=== PATIENT | male | born 1975 | race Caucasian/White ===

== ENCOUNTER 2022-08-20 07:39 | Emergency (ER) | payer OTHER, BC, SELFPAY ==
[2022-08-20] VITALS (61 sets, daily range): BP systolic 112–142; BP diastolic 56–101; PULSE 60–79; RESP 16; TEMP 35.9–36.2; O2SAT 94–98
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
--- NOTE | 2022-08-20 07:56 | ED.GENADULT ---
HPI - General Adult General Chief complaint: Head Injury/Pain <Cher Grady MD - Last Filed: 08/20/22 08:28> Stated complaint: Snow plowing accident/hit head/neck pain <Cher Grady MD - Last Filed: 08/20/22 08:28> Time Seen by Provider: 08/20/22 07:54 <Cher Grady MD - Last Filed: 08/20/22 08:28> Source: patient <Cher Grady MD - Last Filed: 08/20/22 08:28> Mode of arrival: ambulatory <Cher Grady MD - Last Filed: 08/20/22 08:28> History of Present Illness HPI narrative: 46-year-old male with no significant history of prior head injury or seizure disorder presents to the emergency department 20 minutes after head injury. 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 The blade hit a curb unexpectedly, jarring to an immediate stop. Patient was not expecting this. And the impact caused his head to arch forward, striking it on the steering wheel or dashboard. He does believe that there was a brief loss of consciousness but could not have been more than a couple of minutes based on timing. He said that he came to without significant neurological change but has felt dizzy, disoriented and nauseated since. He believes that it likely hit the rim of his glasses as he has a small abrasion on the bridge of his nose. He said he felt immediate dizziness and nausea. He still feels disoriented at this time. No prior history of seizures, no severe head injuries in the past. He is not anticoagulated. No intoxication or impairing substances. He does have some tenderness around the nose and forehead area, no vision changes. There is also some pain in the lower neck, no history of significant prior injury. Denies any pain in his limbs or extremities or torso. No chest pain, dyspnea. No vomiting. Has not taken any medication to help with his symptoms. On specific questioning, he does report some lower neck pain, posterior. Denies weakness. Trauma team activation called due to mechanism of injury and loss of consciousness. Past medical history notable for depression and anxiety. Home medications listed his bupropion, fluoxetine and propranolol. He reports that he takes the propranolol 4-5 times per month p.r.n.. Denies prior surgeries. He notes no intoxication, alcohol use or tobacco use. ROS is notable for dizziness, neck pain, disorientation and mild head pain as described above. He otherwise denies times 12 systems decide some very mild nausea but declines medication to treat this at this time. <Cher Grady MD - Last Filed: 08/20/22 08:28> Related Data Home medications: Home Medications Medication Instructions Recorded Confirmed bupropion HCl 150 mg 24 hr tablet, mg PO 01/15/22 01/15/22 extended release fluoxetine 20 mg capsule 20 mg PO QPM 01/15/22 01/15/22 propranolol 10 mg tablet 10 mg PO BID PRN anxiety 01/15/22 01/15/22 Previous Rx's Medication Instructions Recorded cyclobenzaprine 10 mg tablet 10 mg PO TID PRN muscle spasm #20 08/20/22 tabs <Cher Grady MD - Last Filed: 08/20/22 08:28> Allergies/adverse reactions: Allergies Allergy/AdvReac Type Severity Reaction Status Date / Time No Known Drug Allergies Allergy Verified 08/20/22 07:59 <Cher Grady MD - Last Filed: 08/20/22 08:28> [facility] Medical History: Medical History Depression Generalized anxiety disorder <Cher Grady MD - Last Filed: 08/20/22 08:28> Social History: Social History Smoking Status: Former smoker Do you use any of these nicotine containing products: None Second hand tobacco smoke exposure: Yes How often do you have a drink containing alcohol: 2-3 times a week How often do you have six or more drinks on one occasion: Monthly AUDIT-C Alcohol total score: 5 Non-prescribed substance use: marijuana (any form) Non-prescribed substance use details: occasional gummy service: No <Cher Grady MD - Last Filed: 08/20/22 08:28> Exam Const: Vital Signs, click to edit/add: Vital Signs - 24 hr 08/20/22 07:54 08/20/22 08:08 08/20/22 08:09 Temperature 96.6 F L Pulse Rate 70 68 Pulse Rate [Left P ulse Oximeter] 79 Respiratory Rate 16 Blood Pressure 124/84 Blood Pressure [Ri ght Upper Arm] 142/101 H Pulse Oximetry 97 96 96 Oxygen Delivery Me thod Room Air 08/20/22 08:17 08/20/22 08:20 08/20/22 08:22 Temperature Pulse Rate 70 68 67 Pulse Rate [Left P ulse Oximeter] Respiratory Rate Blood Pressure 132/85 Blood Pressure [Ri ght Upper Arm] Pulse Oximetry 94 96 96 Oxygen Delivery Me thod 08/20/22 08:23 08/20/22 08:30 08/20/22 08:31 Temperature Pulse Rate 68 66 68 Pulse Rate [Left P ulse Oximeter] Respiratory Rate Blood Pressure 121/80 Blood Pressure [Ri ght Upper Arm] Pulse Oximetry 96 95 95 Oxygen Delivery Me thod 08/20/22 08:32 08/20/22 08:41 08/20/22 08:42 Temperature Pulse Rate 68 67 68 Pulse Rate [Left P ulse Oximeter] Respiratory Rate Blood Pressure 121/81 Blood Pressure [Ri ght Upper Arm] Pulse Oximetry 95 95 95 Oxygen Delivery Me thod 08/20/22 08:50 08/20/22 08:51 08/20/22 09:00 Temperature Pulse Rate 64 67 67 Pulse Rate [Left P ulse Oximeter] Respiratory Rate Blood Pressure 120/78 Blood Pressure [Ri ght Upper Arm] Pulse Oximetry 95 96 97 Oxygen Delivery Me thod 08/20/22 09:01 08/20/22 09:02 08/20/22 09:10 Temperature Pulse Rate 68 69 69 Pulse Rate [Left P ulse Oximeter] Respiratory Rate Blood Pressure 128/83 Blood Pressure [Ri ght Upper Arm] Pulse Oximetry 97 96 97 Oxygen Delivery Me thod 08/20/22 09:11 08/20/22 09:17 08/20/22 09:12 Temperature 97.1 F L Pulse Rate 71 71 Pulse Rate [Left P ulse Oximeter] Respiratory Rate Blood Pressure 112/56 L Blood Pressure [Ri ght Upper Arm] Pulse Oximetry 97 98 Oxygen Delivery Me thod 08/20/22 09:20 08/20/22 09:21 08/20/22 09:30 Temperature Pulse Rate 68 68 64 Pulse Rate [Left P ulse Oximeter] Respiratory Rate Blood Pressure 123/87 Blood Pressure [Ri ght Upper Arm] Pulse Oximetry 96 97 96 Oxygen Delivery Me thod 08/20/22 09:31 08/20/22 09:32 08/20/22 09:40 Temperature Pulse Rate 65 68 65 Pulse Rate [Left P ulse Oximeter] Respiratory Rate Blood Pressure 125/78 Blood Pressure [Ri ght Upper Arm] Pulse Oximetry 96 96 96 Oxygen Delivery Me thod 08/20/22 09:41 08/20/22 09:50 08/20/22 09:51 Temperature Pulse Rate 67 67 70 Pulse Rate [Left P ulse Oximeter] Respiratory Rate Blood Pressure 124/76 132/88 Blood Pressure [Ri ght Upper Arm] Pulse Oximetry 97 97 98 Oxygen Delivery Me thod 08/20/22 09:52 08/20/22 10:00 08/20/22 10:01 Temperature Pulse Rate 68 67 70 Pulse Rate [Left P ulse Oximeter] Respiratory Rate Blood Pressure 128/91 H Blood Pressure [Ri ght Upper Arm] Pulse Oximetry 98 97 97 Oxygen Delivery Me thod 08/20/22 10:10 08/20/22 10:11 08/20/22 10:20 Temperature Pulse Rate 74 71 68 Pulse Rate [Left P ulse Oximeter] Respiratory Rate Blood Pressure 127/89 Blood Pressure [Ri ght Upper Arm] Pulse Oximetry 98 98 98 Oxygen Delivery Me thod 08/20/22 10:21 08/20/22 10:22 08/20/22 10:30 Temperature Pulse Rate 72 67 66 Pulse Rate [Left P ulse Oximeter] Respiratory Rate Blood Pressure 130/98 H Blood Pressure [Ri ght Upper Arm] Pulse Oximetry 97 98 96 Oxygen Delivery Me thod 08/20/22 10:32 08/20/22 10:40 08/20/22 10:41 Temperature Pulse Rate 64 64 64 Pulse Rate [Left P ulse Oximeter] Respiratory Rate Blood Pressure 115/76 119/72 Blood Pressure [Ri ght Upper Arm] Pulse Oximetry 96 96 96 Oxygen Delivery Me thod 08/20/22 10:42 08/20/22 10:50 08/20/22 11:00 Temperature Pulse Rate 64 64 63 Pulse Rate [Left P ulse Oximeter] Respiratory Rate Blood Pressure Blood Pressure [Ri ght Upper Arm] Pulse Oximetry 96 96 95 Oxygen Delivery Me thod 08/20/22 11:01 08/20/22 11:10 08/20/22 11:20 Temperature Pulse Rate 71 68 67 Pulse Rate [Left P ulse Oximeter] Respiratory Rate Blood Pressure 127/70 Blood Pressure [Ri ght Upper Arm] Pulse Oximetry 95 95 97 Oxygen Delivery Me thod 08/20/22 11:52 08/20/22 11:54 08/20/22 12:00 Temperature Pulse Rate 64 65 60 Pulse Rate [Left P ulse Oximeter] Respiratory Rate Blood Pressure 128/83 Blood Pressure [Ri ght Upper Arm] Pulse Oximetry 98 96 97 Oxygen Delivery Me thod 08/20/22 12:01 08/20/22 12:10 08/20/22 12:20 Temperature Pulse Rate 65 63 63 Pulse Rate [Left P ulse Oximeter] Respiratory Rate Blood Pressure 124/89 Blood Pressure [Ri ght Upper Arm] Pulse Oximetry 97 96 97 Oxygen Delivery Me thod 08/20/22 12:30 08/20/22 12:31 08/20/22 12:40 Temperature Pulse Rate 62 66 65 Pulse Rate [Left P ulse Oximeter] Respiratory Rate Blood Pressure 124/88 Blood Pressure [Ri ght Upper Arm] Pulse Oximetry 97 98 96 Oxygen Delivery Me thod 08/20/22 12:50 08/20/22 13:00 08/20/22 13:01 Temperature Pulse Rate 79 63 62 Pulse Rate [Left P ulse Oximeter] Respiratory Rate Blood Pressure 127/84 Blood Pressure [Ri ght Upper Arm] Pulse Oximetry 95 97 96 Oxygen Delivery Me thod 08/20/22 13:10 Temperature Pulse Rate 67 Pulse Rate [Left P ulse Oximeter] Respiratory Rate Blood Pressure Blood Pressure [Ri ght Upper Arm] Pulse Oximetry 97 Oxygen Delivery Me thod <Cher Grady MD - Last Filed: 08/20/22 08:28> Vital Signs, click to edit/add: Vital Signs - 24 hr 08/20/22 07:54 08/20/22 08:08 08/20/22 08:09 Temperature 96.6 F L Pulse Rate 70 68 Pulse Rate [Left P ulse Oximeter] 79 Respiratory Rate 16 Blood Pressure 124/84 Blood Pressure [Ri ght Upper Arm] 142/101 H Pulse Oximetry 97 96 96 Oxygen Delivery Me thod Room Air 08/20/22 08:17 08/20/22 08:20 08/20/22 08:22 Temperature Pulse Rate 70 68 67 Pulse Rate [Left P ulse Oximeter] Respiratory Rate Blood Pressure 132/85 Blood Pressure [Ri ght Upper Arm] Pulse Oximetry 94 96 96 Oxygen Delivery Me thod 08/20/22 08:23 08/20/22 08:30 08/20/22 08:31 Temperature Pulse Rate 68 66 68 Pulse Rate [Left P ulse Oximeter] Respiratory Rate Blood Pressure 121/80 Blood Pressure [Ri ght Upper Arm] Pulse Oximetry 96 95 95 Oxygen Delivery Me thod 08/20/22 08:32 08/20/22 08:41 08/20/22 08:42 Temperature Pulse Rate 68 67 68 Pulse Rate [Left P ulse Oximeter] Respiratory Rate Blood Pressure 121/81 Blood Pressure [Ri ght Upper Arm] Pulse Oximetry 95 95 95 Oxygen Delivery Me thod 08/20/22 08:50 08/20/22 08:51 08/20/22 09:00 Temperature Pulse Rate 64 67 67 Pulse Rate [Left P ulse Oximeter] Respiratory Rate Blood Pressure 120/78 Blood Pressure [Ri ght Upper Arm] Pulse Oximetry 95 96 97 Oxygen Delivery Me thod 08/20/22 09:01 08/20/22 09:02 08/20/22 09:10 Temperature Pulse Rate 68 69 69 Pulse Rate [Left P ulse Oximeter] Respiratory Rate Blood Pressure 128/83 Blood Pressure [Ri ght Upper Arm] Pulse Oximetry 97 96 97 Oxygen Delivery Me thod 08/20/22 09:11 08/20/22 09:17 08/20/22 09:12 Temperature 97.1 F L Pulse Rate 71 71 Pulse Rate [Left P ulse Oximeter] Respiratory Rate Blood Pressure 112/56 L Blood Pressure [Ri ght Upper Arm] Pulse Oximetry 97 98 Oxygen Delivery Me thod 08/20/22 09:20 08/20/22 09:21 08/20/22 09:30 Temperature Pulse Rate 68 68 64 Pulse Rate [Left P ulse Oximeter] Respiratory Rate Blood Pressure 123/87 Blood Pressure [Ri ght Upper Arm] Pulse Oximetry 96 97 96 Oxygen Delivery Me thod 08/20/22 09:31 08/20/22 09:32 08/20/22 09:40 Temperature Pulse Rate 65 68 65 Pulse Rate [Left P ulse Oximeter] Respiratory Rate Blood Pressure 125/78 Blood Pressure [Ri ght Upper Arm] Pulse Oximetry 96 96 96 Oxygen Delivery Me thod 08/20/22 09:41 08/20/22 09:50 08/20/22 09:51 Temperature Pulse Rate 67 67 70 Pulse Rate [Left P ulse Oximeter] Respiratory Rate Blood Pressure 124/76 132/88 Blood Pressure [Ri ght Upper Arm] Pulse Oximetry 97 97 98 Oxygen Delivery Me thod 08/20/22 09:52 08/20/22 10:00 08/20/22 10:01 Temperature Pulse Rate 68 67 70 Pulse Rate [Left P ulse Oximeter] Respiratory Rate Blood Pressure 128/91 H Blood Pressure [Ri ght Upper Arm] Pulse Oximetry 98 97 97 Oxygen Delivery Me thod 08/20/22 10:10 08/20/22 10:11 08/20/22 10:20 Temperature Pulse Rate 74 71 68 Pulse Rate [Left P ulse Oximeter] Respiratory Rate Blood Pressure 127/89 Blood Pressure [Ri ght Upper Arm] Pulse Oximetry 98 98 98 Oxygen Delivery Me thod 08/20/22 10:21 08/20/22 10:22 08/20/22 10:30 Temperature Pulse Rate 72 67 66 Pulse Rate [Left P ulse Oximeter] Respiratory Rate Blood Pressure 130/98 H Blood Pressure [Ri ght Upper Arm] Pulse Oximetry 97 98 96 Oxygen Delivery Me thod 08/20/22 10:32 08/20/22 10:40 08/20/22 10:41 Temperature Pulse Rate 64 64 64 Pulse Rate [Left P ulse Oximeter] Respiratory Rate Blood Pressure 115/76 119/72 Blood Pressure [Ri ght Upper Arm] Pulse Oximetry 96 96 96 Oxygen Delivery Me thod 08/20/22 10:42 08/20/22 10:50 08/20/22 11:00 Temperature Pulse Rate 64 64 63 Pulse Rate [Left P ulse Oximeter] Respiratory Rate Blood Pressure Blood Pressure [Ri ght Upper Arm] Pulse Oximetry 96 96 95 Oxygen Delivery Me thod 08/20/22 11:01 08/20/22 11:10 08/20/22 11:20 Temperature Pulse Rate 71 68 67 Pulse Rate [Left P ulse Oximeter] Respiratory Rate Blood Pressure 127/70 Blood Pressure [Ri ght Upper Arm] Pulse Oximetry 95 95 97 Oxygen Delivery Me thod 08/20/22 11:52 08/20/22 11:54 08/20/22 12:00 Temperature Pulse Rate 64 65 60 Pulse Rate [Left P ulse Oximeter] Respiratory Rate Blood Pressure 128/83 Blood Pressure [Ri ght Upper Arm] Pulse Oximetry 98 96 97 Oxygen Delivery Me thod 08/20/22 12:01 08/20/22 12:10 08/20/22 12:20 Temperature Pulse Rate 65 63 63 Pulse Rate [Left P ulse Oximeter] Respiratory Rate Blood Pressure 124/89 Blood Pressure [Ri ght Upper Arm] Pulse Oximetry 97 96 97 Oxygen Delivery Me thod 08/20/22 12:30 08/20/22 12:31 08/20/22 12:40 Temperature Pulse Rate 62 66 65 Pulse Rate [Left P ulse Oximeter] Respiratory Rate Blood Pressure 124/88 Blood Pressure [Ri ght Upper Arm] Pulse Oximetry 97 98 96 Oxygen Delivery Me thod 08/20/22 12:50 08/20/22 13:00 08/20/22 13:01 Temperature Pulse Rate 79 63 62 Pulse Rate [Left P ulse Oximeter] Respiratory Rate Blood Pressure 127/84 Blood Pressure [Ri ght Upper Arm] Pulse Oximetry 95 97 96 Oxygen Delivery Me thod 08/20/22 13:10 Temperature Pulse Rate 67 Pulse Rate [Left P ulse Oximeter] Respiratory Rate Blood Pressure Blood Pressure [Ri ght Upper Arm] Pulse Oximetry 97 Oxygen Delivery Me thod <Pam Hartley MD - Last Filed: 08/20/22 16:54> Documenting provider has reviewed patient's vital signs: yes <Cher Grady MD - Last Filed: 08/20/22 08:28> Common normals: alert <Cher Grady MD - Last Filed: 08/20/22 08:28> General appearance: cooperative and well kempt <Cher Grady MD - Last Filed: 08/20/22 08:28> Orientation/consciousness: Yes awake <Cher Grady MD - Last Filed: 08/20/22 08:28> HENMT: Common normals: TM's normal bilaterally <MD Soni Arrieta Last Filed: 08/20/22 08:28> Tympanic membrane: TM's normal bilaterally <MD Soni Arrieta Last Filed: 08/20/22 08:28> Mouth: oral and palatal mucosa normal <MD Soni Arrieta Last Filed: 08/20/22 08:28> Throat: posterior oropharynx normal <MD Soni Arrieta Last Filed: 08/20/22 08:28> Other: There is a small abrasion on the upper bridge of the nose where the glasses contact. Glasses are not broken. There is no other deformity to the scalp or skull. Facial bones without deformity otherwise. Teeth are normal. No signs of tongue biting or evidence of seizure. <MD Soni Arrieta Last Filed: 08/20/22 08:28> Eye: Common normals: PERRL and EOMs intact bilaterally <MD Soni Arrieta Last Filed: 08/20/22 08:28> General eye: normal appearance of both eyes <MD Soni Arrieta Last Filed: 08/20/22 08:28> Pupil: PERRL <MD Soni Arrieta Last Filed: 08/20/22 08:28> Neck & C-Spine: Other: Cervical spine with paraspinal muscle tenderness around C8-T2 area mainly. There is some mild bony tenderness over C8 only. No point tenderness on the upper cervical vertebrae. He can flex, extend and rotate without significant additional pain. No step-offs <MD Soni Arrieta Last Filed: 08/20/22 08:28> Chest: Common normals: inspection of chest normal and palpation of chest normal <MD Soni Arrieta Last Filed: 08/20/22 08:28> Resp: Common normals: normal respiratory effort, no use of accessory muscles and clear to auscultation bilaterally <MD Soni Arrieta Last Filed: 08/20/22 08:28> Effort & inspection: able to speak in complete sentences <MD Soni Arrieta Last Filed: 08/20/22 08:28> Auscultation: clear to auscultation bilaterally <MD Soni Arrieta Last Filed: 08/20/22 08:28> Cardio: Common normals: regular rate, regular rhythm, S1 normal heart sound, S2 normal heart sound, no murmurs and peripheral pulses 2+ throughout <MD Soni Arrieta Last Filed: 08/20/22 08:28> Rate: regular rate <MD Soni Arrieta Last Filed: 08/20/22 08:28> Rhythm: regular rhythm <MD Soni Arrieta Last Filed: 08/20/22 08:28> Heart sounds: S1 normal and S2 normal <MD Soni Arrieta Last Filed: 08/20/22 08:28> Peripheral pulses: pulses 2+ throughout <MD Soni Arrieta Last Filed: 08/20/22 08:28> GI: Common normals: Normal to inspection, nondistended, normoactive bowel sounds present, soft to palpation, non-tender, no hepatosplenomegaly and no masses <MD Soni Arrieta Last Filed: 08/20/22 08:28> Palpation: soft and no hepatosplenomegaly <MD Soni Arrieta Last Filed: 08/20/22 08:28> Back & Pelvis: Common normals: thoracic and lumbar spine normal to inspection and no thoracic nor lumbar tenderness <MD Soni Arrieta Last Filed: 08/20/22 08:28> Other: Complain of some very mild initial tenderness to palpation over the left outside pelvis but was not reproducible in supine exam. Ambulates into the exam room without difficulty. No obvious swelling to any joints. Mild abrasion noted to left dorsum of hand. <MD Soni Arrieta Last Filed: 08/20/22 08:28> Extremity: Common normals: normal to inspection, normal capillary refill, no joint enlargement and no pedal edema <MD Soni Arrieta Last Filed: 08/20/22 08:28> Neuro: [place] Coma Scale: document GCS findings [place] coma scale eye opening: Spontaneous (4) [place] coma scale verbal response: Orientated (5) [place] coma scale motor response: Obey commands (6) [place] coma scale total score: 15 <Cher Grady MD - Last Filed: 08/20/22 08:28> [place] Coma Scale: document GCS findings [place] coma scale total score: 15 <Pam Hartley MD - Last Filed: 08/20/22 16:54> Sensorium/orientation: awake and alert <Cher Grady MD - Last Filed: 08/20/22 08:28> Cranial nerves: CN normal except as noted <Cher Grady MD - Last Filed: 08/20/22 08:28> Speech: speech normal <Cher Grady MD - Last Filed: 08/20/22 08:28> Gait (neuro): normal gait <Cher Grady MD - Last Filed: 08/20/22 08:28> Motor exam: strength 5/5 throughout, no tremor noted and no movement abnormalities noted <Cher Grady MD - Last Filed: 08/20/22 08:28> Psych: Common normals: mental status grossly normal, thought process normal and cooperative <Cher Grady MD - Last Filed: 08/20/22 08:28> Appearance: well kempt <Cher Grady MD - Last Filed: 08/20/22 08:28> Attitude: engaged <Cher Grady MD - Last Filed: 08/20/22 08:28> Activity/motor behavior: appropriate eye contact <Cher Grady MD - Last Filed: 08/20/22 08:28> Mood and affect: anxious <Cher Grady MD - Last Filed: 08/20/22 08:28> Thought process: normal thought process <Cher Grady MD - Last Filed: 08/20/22 08:28> Attention/concentration: attention grossly intact <Cher Grady MD - Last Filed: 08/20/22 08:28> Insight: insight good <Cher Grady MD - Last Filed: 08/20/22 08:28> Judgement: judgment good <Cher Grady MD - Last Filed: 08/20/22 08:28> Skin: Narrative: Slight abrasion on hand, slight abrasion on upper bridge of nose, neither are bleeding, all are superficial depth. <Cher Grady MD - Last Filed: 08/20/22 08:28> Course Reevaluation(s) Reevaluation #1: Patient with continued GCS of 15. However he continues to note increasing neck pain. States that is now radiating up from the bottom of his neck into his head. Patient noted to have continued pain of his neck after removal of the collar. CT was read is negative for acute injury. However he is limited in his rotation and has discomfort now in the midline. Would recommend MRI cervical spine in this has been arranged. Will place the [place] collar. <Pam Hartley MD - Last Filed: 08/20/22 16:54> Vital Signs Vital signs: Initial Vital Signs Temperature 96.6 F L 08/20/22 07:54 Temperature Source Temporal Artery Scan 08/20/22 07:54 Pulse Rate 79 08/20/22 07:54 Pulse Rhythm 08/20/22 07:54 Respiratory Rate 16 08/20/22 07:54 Blood Pressure 142/101 H 08/20/22 07:54 Blood Pressure Mean 114 08/20/22 07:54 Blood Pressure Position Sitting 08/20/22 07:54 Pulse Oximetry 97 08/20/22 07:54 Oxygen Delivery Method 08/20/22 07:54 Vital Signs Temperature 96.6 F L 08/20/22 07:54 Pulse Rate 79 08/20/22 07:54 Respiratory Rate 16 08/20/22 07:54 Blood Pressure 142/101 H 08/20/22 07:54 Pulse Oximetry 97 08/20/22 07:54 Oxygen Delivery Method 08/20/22 07:54 Temperature 97.1 F L 08/20/22 09:17 Pulse Rate 67 08/20/22 13:10 Respiratory Rate 16 08/20/22 07:54 Blood Pressure 127/84 08/20/22 13:01 Pulse Oximetry 97 08/20/22 13:10 Oxygen Delivery Method 08/20/22 07:54 <Cher Grady MD - Last Filed: 08/20/22 08:28> Initial Vital Signs Temperature 96.6 F L 08/20/22 07:54 Temperature Source Temporal Artery Scan 08/20/22 07:54 Pulse Rate 79 08/20/22 07:54 Pulse Rhythm 08/20/22 07:54 Respiratory Rate 16 08/20/22 07:54 Blood Pressure 142/101 H 08/20/22 07:54 Blood Pressure Mean 114 08/20/22 07:54 Blood Pressure Position Sitting 08/20/22 07:54 Pulse Oximetry 97 08/20/22 07:54 Oxygen Delivery Method 08/20/22 07:54 Vital Signs Temperature 96.6 F L 08/20/22 07:54 Pulse Rate 79 08/20/22 07:54 Respiratory Rate 16 08/20/22 07:54 Blood Pressure 142/101 H 08/20/22 07:54 Pulse Oximetry 97 08/20/22 07:54 Oxygen Delivery Method 08/20/22 07:54 Temperature 97.1 F L 08/20/22 09:17 Pulse Rate 67 08/20/22 13:10 Respiratory Rate 16 08/20/22 07:54 Blood Pressure 127/84 08/20/22 13:01 Pulse Oximetry 97 08/20/22 13:10 Oxygen Delivery Method 08/20/22 07:54 <Pam Hartley MD - Last Filed: 08/20/22 16:54> Medical Decision Making MDM Narrative Medical decision making narrative: Head injury with brief loss of consciousness. Suspect concussion but cannot exclude intracranial hemorrhage, cervical spine injury, facial fracture, other injuries. Will monitor condition, not giving any pain or antiemetic treatments at this time, he verbalizes understanding and understands my rationale. CT scan of facial bones, head and cervical spine, basic labs to look for anemia, electrolyte abnormality, intoxication or other reason for potential impairment. Will need counseling regarding concussion based on findings. Anticipate hand over to my partner in coming on day shift. <Cher Grady MD - Last Filed: 08/20/22 08:28> Head injury with brief loss of consciousness. Suspect concussion but cannot exclude intracranial hemorrhage, cervical spine injury, facial fracture, other injuries. Will monitor condition, not giving any pain or antiemetic treatments at this time, he verbalizes understanding and understands my rationale. CT scan of facial bones, head and cervical spine, basic labs to look for anemia, electrolyte abnormality, intoxication or other reason for potential impairment. Will need counseling regarding concussion based on findings. Anticipate hand over to my partner in coming on day shift. Assessment/plan 1. Cervical strain-patient noted to have negative CT but complained of neck pain and had limited range of motion. We were able to get an MRI without contrast that showed no evidence of ligamental or bony injury. We did remove the [place] collar. Patient was given Flexeril 10 mg and ibuprofen 600 mg and did have improvement in his discomfort. Flexeril 10 mg p.o. t.i.d. p.r.n. 20. Was sent to the pharmacy. 2. Concussion-patient is given note for no work over the next 5 days. Will need to recheck with his primary on ThursdayAugust 25 to be cleared back to work. Head CT reassuring. 3. Facial trauma-patient with no evidence of fracture. He did have superficial laceration on the bridge of his nose and his left hand. Last tetanus was in 2010. He declines his tetanus today. I did state that usually we would like this done is within 72 hours but he states he is ?not worried?. He will follow up with primary MD next week. 3. Disposition-return to the emergency room for worsening symptoms and as needed. <Pam Hartley MD - Last Filed: 08/20/22 16:54> Medical Records Medical records reviewed: Yes I reviewed the patient's medical records <Pam Hartley MD - Last Filed: 08/20/22 16:54> Lab Data Lab results reviewed: Yes I reviewed the patient's lab results <Pam Hartley MD - Last Filed: 08/20/22 16:54> Labs: Lab Results 08/20/22 08/20/22 Range/Units 08:25 08:25 WBC 4.61 (4.50-11.00) K/uL RBC 4.95 (4.30-5.90) m/uL Hgb 15.4 (13.5-17.5) gm/dL Hct 43.7 (37.0-53.0) % MCV 88 (80-100) fL MCH 31 (26-34) pg MCHC 35 (32-36) gm/dL RDW Coeff of Thuy 11.9 (11.5-15.5) % Plt Count 217 (140-440) K/uL Neut % (Auto) 70.9 (42.0-72.0) % Lymph % (Auto) 19.1 L (20-44) % [place] % (Auto) 7.8 (0.0-11.0) % Eos % (Auto) 1.1 (0.0-7.0) % Baso % (Auto) 0.4 (0.0-3.0) % Neut # (Auto) 3.27 (1.7-7.0) K/uL Lymph # (Auto) 0.90 (0.90-2.90) K/uL [place] # (Auto) 0.40 (0.00-0.90) K/UL Eos # (Auto) 0.05 (0.00-0.50) K/uL Baso # (Auto) 0.02 (0.00-0.30) K/uL Sodium 140 (135-149) mmol/L Potassium 4.2 (3.6-5.1) mmol/L Chloride 110 (96-114) mmol/L Carbon Dioxide 24 (20-32) mmol/L BUN 21 (5-24) mg/dL Creatinine 0.8 (0.5-1.5) mg/dL Estimated Creat Clear 124.19 Estimated GFR 111 ml/min Glucose 121 H (60-115) mg/dL Calcium 9.2 (8.4-10.6) mg/dL Ethyl Alcohol < 0.01 L (0.01-0.03) % <Cher Grady MD - Last Filed: 08/20/22 08:28> Lab Results 08/20/22 08/20/22 Range/Units 08:25 08:25 WBC 4.61 (4.50-11.00) K/uL RBC 4.95 (4.30-5.90) m/uL Hgb 15.4 (13.5-17.5) gm/dL Hct 43.7 (37.0-53.0) % MCV 88 (80-100) fL MCH 31 (26-34) pg MCHC 35 (32-36) gm/dL RDW Coeff of Thuy 11.9 (11.5-15.5) % Plt Count 217 (140-440) K/uL Neut % (Auto) 70.9 (42.0-72.0) % Lymph % (Auto) 19.1 L (20-44) % [place] % (Auto) 7.8 (0.0-11.0) % Eos % (Auto) 1.1 (0.0-7.0) % Baso % (Auto) 0.4 (0.0-3.0) % Neut # (Auto) 3.27 (1.7-7.0) K/uL Lymph # (Auto) 0.90 (0.90-2.90) K/uL [place] # (Auto) 0.40 (0.00-0.90) K/UL Eos # (Auto) 0.05 (0.00-0.50) K/uL Baso # (Auto) 0.02 (0.00-0.30) K/uL Sodium 140 (135-149) mmol/L Potassium 4.2 (3.6-5.1) mmol/L Chloride 110 (96-114) mmol/L Carbon Dioxide 24 (20-32) mmol/L BUN 21 (5-24) mg/dL Creatinine 0.8 (0.5-1.5) mg/dL Estimated Creat Clear 124.19 Estimated GFR 111 ml/min Glucose 121 H (60-115) mg/dL Calcium 9.2 (8.4-10.6) mg/dL Ethyl Alcohol < 0.01 L (0.01-0.03) % <Pam Hartley MD - Last Filed: 08/20/22 16:54> Imaging Data CT scan - head: Attestation: I have reviewed the pertinent imaging results. <Pam Hartley MD - Last Filed: 08/20/22 16:54> My impression: No obvious head bleed or skull fracture <Pam Hartley MD - Last Filed: 08/20/22 16:54> Radiologist's impression: Negative for acute findings <Pam Hartley MD - Last Filed: 08/20/22 16:54> Cervical spine CT: Attestation: I have reviewed the pertinent imaging results. <Pam Hartley MD - Last Filed: 08/20/22 16:54> Radiologist's impression: ertebrae: Alignment is normal.? There are no fractures or suspicious bony lesions.? Discs and facet joints: Minimal intervertebral disc space narrowing C6-C7. No significant facet arthropathy. Extraspinal findings: Prevertebral soft tissues, visualized airway, and visualized lungs are unremarkable.? IMPRESSION: No evidence of cervical spine fracture <Pam Hartley MD - Last Filed: 08/20/22 16:54> Facial bones CT: Attestation: I have reviewed the pertinent imaging results. <Pam Hartley MD - Last Filed: 08/20/22 16:54> Radiologist's impression: Facial bones: No fractures or bone lesions.? Specifically the nasal bones, temporomandibular joints, maxilla and mandible appear intact. Orbits and globes: Unremarkable. Globes are intact. No sign of intraorbital hemorrhage or emphysema. Sinuses: No acute or significant findings. Soft tissues: Unremarkable.? IMPRESSION: No evidence of facial fracture. <Pam Hartley MD - Last Filed: 08/20/22 16:54> Cervical MRI: Attestation: I have reviewed the pertinent imaging results. <Pam Hartley MD - Last Filed: 08/20/22 16:54> Radiologist's impression: Normal cervical lordotic curve. No evidence cervical spine fracture or ligamentous injury. No evidence of cord contusion. Posterior fossa structures are normal. Cervical cord signal is normal. No extraspinal soft tissue abnormalities. Discs/Endplates: Mild disc height loss/disc desiccation at C5-6, C6-7 and C7-T1. The other discs are within normal limits. Findings at individual levels as follows: Craniocervical junction: Alignment is maintained. C2-C3: No spinal canal or neural foraminal stenosis. C3-C4: No spinal canal or neural foraminal stenosis. C4-C5: Bilateral uncovertebral arthrosis contributes to mild left and mild to moderate right neural foraminal stenosis. No spinal canal stenosis. C5-C6: Shallow disc osteophyte complex flattens the thecal sac without spinal canal stenosis. Bilateral uncovertebral arthrosis with mild bilateral neural foraminal stenosis. C6-C7: Trace anterolisthesis. A 4 millimeter right dorsal lateral disc protrusion and contiguous uncovertebral arthrosis contribute to moderate right neural foraminal stenosis with potential mild impingement of the exiting right C7 nerve root. No left neural foraminal stenosis or spinal canal stenosis. C7-T1: Right uncovertebral arthrosis contributes to mild right neural foraminal stenosis. No left neural foraminal stenosis or spinal canal stenosis. IMPRESSION: 1. No MRI evidence of traumatic cervical spine osseous or ligamentous injury. No cord contusion. 2. Scattered cervical spondylosis most prominent at the lower cervical levels. At C6-7, moderate right neural foraminal stenosis with potential mild impingement of the exiting right C7 nerve root. No high-grade spinal canal stenosis or cord deformity at any cervical level. Cervical cord signal is normal. <Pam Hartley MD - Last Filed: 08/20/22 16:54> Discharge Plan Discharge Clinical Impression: Cervical myofascial strain, Concussion, Soft tissue injury <Cher Grady MD - Last Filed: 08/20/22 08:28> Patient Disposition: Home, Self-Care <Cher Grady MD - Last Filed: 08/20/22 08:28> Condition: Improved <Cher Grady MD - Last Filed: 08/20/22 08:28> Additional Instructions: Rest today. Suggest no work for the rest of this week. Follow-up on Thursday with the clinic at . They will need to clear you to return. Ibuprofen or Tylenol may be used for discomfort. Flexeril is a muscle relaxer that may be used for muscle stiffness or spasm. Please do not drive, use alcohol if you are taking this medication is it does cause sedation. Return as needed. Follow up appointment is scheduled at the [facility] on 08/25 with a 7:30am arrival time. If you have any questions or need to reschedule, please call [phone]. [facility] [address] [place] [address] <Cher Grady MD - Last Filed: 08/20/22 08:28> Prescriptions: New cyclobenzaprine 10 mg tablet 10 mg PO TID PRN (Reason: muscle spasm) Qty: 20 0RF No Action bupropion HCl 150 mg tablet extended release 24 hr PO Label Comments: Take 1 tablet (150 mg) by mouth daily in the morning propranolol 10 mg tablet 10 mg PO BID PRN (Reason: anxiety) Label Comments: TAKE ONE TABLET BY MOUTH TWICE DAILY NEEDED fluoxetine 20 mg capsule 20 mg PO QPM Label Comments: TAKE ONE CAPSULE BY MOUTH ONE TIME DAILY <Cher Grady MD - Last Filed: 08/20/22 08:28> Follow Up/Referrals: Glenny Malave MD [Primary Care Provider] - <hCer Grady MD - Last Filed: 08/20/22 08:28> Stand Alone Forms: MyHealth Info Instructions <Cher Grady MD - Last Filed: 08/20/22 08:28>
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
[2022-08-20 08:43] LABS: Basophils Absolute Auto 0.02 K/uL (0.00-0.30); Basophils Percent Auto 0.4 % (0.0-3.0); Eosinophils Absolute Auto 0.05 K/uL (0.00-0.50); Eosinophils Percent Auto 1.1 % (0.0-7.0); Hematocrit 43.7 % (37.0-53.0); Hemoglobin* 15.4 gm/dL (13.5-17.5); Immature Granulocytes Abs Auto 0.03 K/uL (0.00-0.30); Immature Granulocytes Pct Auto 0.7 %; Lymphocytes Percent Auto 19.1 % (20-44); Mean Corpuscular HGB Conc 35 gm/dL (32-36); Mean Corpuscular Hemoglobin 31 pg (26-34); Mean Corpuscular Volume 88 fL (80-100); Monocytes Percent Auto 7.8 % (0.0-11.0); Neutrophils Absolute Auto 3.27 K/uL (1.7-7.0); Neutrophils Percent Auto 70.9 % (42.0-72.0); Platelet Count* 217 K/uL (140-440); RDW Coefficient of Variation % 11.9 % (11.5-15.5); Red Blood Count 4.95 m/uL (4.30-5.90); White Blood Count* 4.61 K/uL (4.50-11.00)
[2022-08-20 08:45] LABS: Slide Review Reflex No
[2022-08-20 08:46] LABS: Chloride* 110 mmol/L (96-114); Potassium* 4.2 mmol/L (3.6-5.1); Sodium* 140 mmol/L (135-149)
[2022-08-20 08:48] LABS: Creatinine* 0.8 mg/dL (0.5-1.5); Est. Creatinine Clearance* 124.19; Estimated Glomerular Filt Rate 111 ml/min
[2022-08-20 08:49] LABS: Blood Urea Nitrogen* 21 mg/dL (5-24); Calcium* 9.2 mg/dL (8.4-10.6); Carbon Dioxide* 24 mmol/L (20-32); Glucose* 121 mg/dL (60-115)
[2022-08-20 08:53] LABS: Ethanol* < 0.01 % (0.01-0.03)
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
--- NOTE | 2022-08-20 09:07 | ED.NURSE ---
C-collar removed by MD. Medium New [place] collar applied to pt per MD direction.
--- NOTE | 2022-08-20 11:28 | PC.NURSE ---
patient to MRI with tech
--- NOTE | 2022-08-20 11:53 | PC.NURSE ---
back to ED from MRI
[2022-08-20] MEDS: IBUPROFEN 200 MG TABLET 600 MG PO (12:48)
[2022-08-20] MEDS: CYCLOBENZAPRINE HCL 10 MG TABLET PO (12:48)
== END 2022-08-20 13:26 | disposition home or self-care (01) ==
PROVIDERS: Family Medicine; Emergency Provider Family Medicine; PCP Family Medicine
DX: S16.1XXA Strain of muscle, fascia and tendon at neck level, initial encounter (principal); S01.21XA Laceration without foreign body of nose, initial encounter; S61.412A Laceration without foreign body of left hand, initial encounter; R55 Syncope and collapse
CPT/HCPCS: 36415; 70450; 70486; 72125; 72141; 80048; 82077; 85025; 99284; 99291; A9270

== ENCOUNTER 2022-10-06 07:43 | Outpatient (CLI) | payer BC, SELFPAY | END 2022-10-06 07:44 | disposition home or self-care (01) | LOC: NFLDREF 15:16 | PROVIDERS: PCP Family Medicine; Referring Provider Family Medicine; Visit Provider Family Medicine | DX: Z00.00 Encounter for general adult medical examination without abnormal findings (principal); E66.9 Obesity, unspecified; R73.01 Impaired fasting glucose; R79.89 Other specified abnormal findings of blood chemistry; F41.9 Anxiety disorder, unspecified; Z12.5 Encounter for screening for malignant neoplasm of prostate; Z13.6 Encounter for screening for cardiovascular disorders | CPT/HCPCS: 80053; 80061; 84153 ==

== ENCOUNTER 2022-10-31 07:30 | Outpatient (CLI) | payer BC, SELFPAY ==
--- NOTE | 2022-10-31 09:24 | W.ANESCHARGE ---
Anesthesia Charges Start Date/Time Anesthesia Start Date: 10/31/22 Anesthesia Start Time: 09:27 Stop Date/Time Anesthesia Stop Date: 10/31/22 Anesthesia Stop Time: 10:05
--- NOTE | 2022-10-31 10:06 | W.ANESCHARGE ---
Anesthesia Charges Start Date/Time Anesthesia Start Date: 10/31/22 Anesthesia Start Time: 09:27 Stop Date/Time Anesthesia Stop Date: 10/31/22 Anesthesia Stop Time: 10:05
== END 2022-10-31 07:31 | disposition home or self-care (01) ==
PROVIDERS: PCP Family Medicine; Visit Provider Internal Medicine
DX: Z12.11 Encounter for screening for malignant neoplasm of colon (principal); K62.1 Rectal polyp; K63.5 Polyp of colon
CPT/HCPCS: 45380; 45385; 811; 812; 88305; J2704

== ENCOUNTER 2023-11-16 07:35 | Outpatient (CLI) | payer OTHER, SELFPAY ==
--- OUTSIDE RECORDS SUMMARY | 2023-12-04 08:17 | XMS_ITS | Clinical Summary ---
Author Organization [facility] Address [place], [place] [address] Care Team Providers Care E Learning Developer Name Role Phone None Primary Care Provider Unavailabl e Allergies Active Allergy Reactions Criticality Noted Date Comments [place] Vomiting 10/16/2008 Medications Medication Sig Dispensed Refills Start Date End Date Status Melatonin 300 mcg tablet Take 1 tablet by mouth at bedtime if needed for Sleep. 0 06/26/2010 Active buPROPion (WELLBUTRIN SR) 150 mg Sustained-Release tablet One oral every am for a week, then increase to twice daily 60 tablet 2 08/18/2012 Active Active Problems Problem Noted Date Diagnosed Date Lumbar radicular pain 08/30/2009 Immunizations Name Administration Dates Next Due Influenza, IIV3 (Age >=3 years) 04/29/2013,04/28 Td (Age >=7 Years) 02/11/2005 Tdap 08/22/2010 Family History Medical History Relation Name Comments Heart Disease Paternal Grandfather Relation Name Status Comments Paternal Grandfather Social History Tobacco Use Types Packs/Day Years Used Date Smoking Tobacco: Former Cigarettes Q uit: 06/29/2010 Smokeless Tobacco: Never Tobacco Cessation:Counseling Given: Yes Alcohol Use Standard Drinks/Week Comments Yes 6.7 (1 standard drink = 0.6 oz p ure alcohol) 1-2 a month Sex and Gender Information Value Date Recorded Sex Assigned at Not on file Gender Identity Not on file Sexual Orientation Not on file Obstetrics History Last Filed Vital Signs Vital Sign Reading Time Taken Comments Blood Pressure 117/74 04/29/2013 11:06 AM CDT Pulse 61 04/29/2013 11:06 AM CDT Temperature 36.6 ??C (97.8 ??F) 12/13/2010 1 0:39 AM CDT Respiratory Rate 18 08/22/2010 10:2 2 AM WEB MOBILE DESIGNER Oxygen Saturation 98% 08/18/2012 11: 28 AM WEB MOBILE DESIGNER Inhaled Oxygen Concentration - - Weight 103.2 kg (227 lb 9.6 oz) 013 11:06 AM CDT Height 180.3 cm (5' 10.98) 04/29/2013 11:06 AM CDT Body Mass Index 31.76 04/29/2013 11:06 AM CDT Plan of Treatment Health Maintenance Due Date Last Done Comments Depression screening for age 12+ 1988 HIV for age 15-65 12/19/1991 BMI (ht and wt on same day) for age 18+ 1994 Tetanus booster 08/22/2020 08/22/2010, 02/11/2005 Colonoscopy through age 75 2021 Lipids for age 45-75 2021 COVID-19 vaccine series (2022- season) 2023 Influenza for age 9-49 02/28/2024 3, 04/28/2007 Hepatitis C screening for ag e 18-79 Completed 11/28/2005 Tdap Completed 08/22/2010 Pneumococcal series for age 6-64 Aged Out No longer eligible b ased on patient's age to complete this topic Procedures Procedure Name Priority Date/Time Associated Diagnosis Comments ANTI HCV Timed 11/28/2005 3:02 PM CDT from Last 3 Months or Most Recently Relevant to Health Maintenance Results * ANTI HCV (11/28/2005 3:02 PM CDT) ANTI HCV Non-reactiv e [facility] 11/28/2005 3:02 PM CDT 11/28/2005 6:54 PM CDT Narrative [facility] - 12/02/2005 1:39 PM CDT Testing Performed By [place], [place] Mihai Abdi MD SEND OUTS [facility] [address] [place] [address] from Last 3 Months or Most Recently Relevant to Health Maintenance Care Teams E Learning Developer Relationship Specialty Start Date End Date None . PCP - General 08/29/15
== END 2023-11-16 07:36 | disposition home or self-care (01) ==
LOC: NFLDREF 12-04 08:16
PROVIDERS: PCP Family Medicine; Referring Provider Family Medicine; Visit Provider Family Medicine
DX: Z00.00 Encounter for general adult medical examination without abnormal findings (principal); R73.01 Impaired fasting glucose; E78.5 Hyperlipidemia, unspecified; E66.9 Obesity, unspecified; R79.89 Other specified abnormal findings of blood chemistry; Z13.9 Encounter for screening, unspecified
CPT/HCPCS: 80053; 80061